=== PATIENT | male | born 1985 | race Hispanic/Latino ===

== ENCOUNTER 2024-08-12 20:57 | Emergency (ER) | payer OTHER, SELFPAY ==
[2024-08-12 21:05] VITALS: BP 134/82; PULSE 102; RESP 15; TEMP 36.7; O2SAT 97
--- NOTE | 2024-08-12 21:50 | ED.EAR ---
HPI - Ear Problem General Chief complaint: Ear Stated complaint: L ear swelling and drainage Time Seen by Provider: 08/12/24 21:16 Source: patient Mode of arrival: ambulatory Limitations: no limitations History of Present Illness HPI Narrative: Patient is a 39-year-old male who presents the ED with report of left ear pain and drainage. Patient reports having pain throughout his left ear for the past 3-4 days. He began having drainage from the left ear yesterday. Reports very slight sore throat, denies significant cough, fevers. Denies right ear pain. Has not taken anything for symptoms. Related Data Allergies Allergy/AdvReac Type Severity Reaction Status Date / Time No Known Allergies Allergy Verified 08/12/24 20:58 Review of Systems Review of Systems: All systems reviewed & are unremarkable except as noted in HPI. All systems reviewed & are unremarkable except as noted in HPI and below Exam Narrative: GENERAL: Well appearing, morbidly obese with BMI of 41.8, non-toxic, in no acute distress. HEAD: Normocephalic, atraumatic. ENT: Very mild posterior pharynx erythema, no tonsillar hypertrophy or exudate. Uvula midline and nonedematous. Right TM clear. Very minimal erythema of right EAC. No drainage. Left EAC significantly edematous, unable to visualize left TM. There is a mild amount of purulent material draining from EAC. Tenderness to palpation throughout left ear pinna and tragus. RESPIRATORY: Airway patent, respirations nonlabored. CARDIOVASCULAR: Regular rate and rhythm MUSCULOSKELETAL: Moves all extremities. No gross deformities. SKIN: Warm, dry, normal color. NEURO: A&O X3. Speech clear PSYCHIATRIC: Appropriate mood and affect. Normal interaction. Course Vital Signs Vital signs: Vital Signs Temperature 98.1 F 08/12/24 21:05 Pulse Rate 102 H 08/12/24 21:05 Respiratory Rate 15 08/12/24 21:05 Blood Pressure 134/82 08/12/24 21:05 Pulse Oximetry 97 08/12/24 21:05 Temperature 98.1 F 08/12/24 21:05 Pulse Rate 98 08/12/24 22:15 Respiratory Rate 15 08/12/24 22:15 Blood Pressure 117/70 08/12/24 22:15 Pulse Oximetry 98 08/12/24 22:15 Medical Decision Making MDM Narrative Medical decision making narrative: Exam consistent with left otitis externa. Ear wick was placed due to significant swelling of EAC. Patient started on ofloxacin ear drops. Advised to continue Tylenol and ibuprofen as needed for pain. Discharged in stable condition. Given return precautions. Medical Records Medical records reviewed: Yes I reviewed the external patient's medical records. Vital Signs Vital Signs: Vital Signs Temperature 98.1 F 08/12/24 21:05 Pulse Rate 102 H 08/12/24 21:05 Respiratory Rate 15 08/12/24 21:05 Blood Pressure 134/82 08/12/24 21:05 Pulse Oximetry 97 08/12/24 21:05 Temperature 98.1 F 08/12/24 21:05 Pulse Rate 98 08/12/24 22:15 Respiratory Rate 15 08/12/24 22:15 Blood Pressure 117/70 08/12/24 22:15 Pulse Oximetry 98 08/12/24 22:15 Discharge Plan Discharge Clinical Impression: Otitis externa Qualifiers: Otitis externa type: unspecified type Chronicity: acute Laterality: left Qualified Code(s): H60.502 - Unspecified acute noninfective otitis externa, left ear Patient Disposition: Home Condition: Stable Instructions: Antibiotic Form, Swimmer's Ear (ED), Ear Infection (ED) Additional Instructions: Utilize antibiotic ear drops as prescribed. Allow ear wick to fall out on its own over the next few days. Continue Tylenol ibuprofen as needed for pain. Follow-up with your primary care doctor and/or ENT for further evaluation if needed. Return to the ED if you experience worsening or severe symptoms or new concerns. Patient Language: Lao Prescriptions: New ofloxacin 0.3 % drops 10 drp LEFT EAR DAILY 7 Days Qty: 5 0RF Follow-up/Referrals: Tutu Montero MD [Physician] - (ENT) PHYSICIAN,FERMENTING CELLARS SUPERVISOR [Primary Care Provider] - Pedro Gongora MD [Physician] - (PRIMARY CARE) Time of Disposition: 21:51
[2024-08-12] MEDS: IBUPROFEN 400 MG TABLET 800 MG PO (21:54)
[2024-08-12] MEDS: ACETAMINOPHEN 500 MG TABLET 1000 MG PO (21:54)
[2024-08-12 22:15] VITALS: BP 117/70; PULSE 98; RESP 15; O2SAT 98
== END 2024-08-12 22:16 | disposition home or self-care (01) ==
PROVIDERS: Emergency Provider Physician Assistant
DX: H60.502 Unspecified acute noninfective otitis externa, left ear (principal)
CPT/HCPCS: 99283; A9270